=== PATIENT | male | born 1950 | race Caucasian/White ===

== ENCOUNTER 2020-06-20 17:41 | Inpatient (IN) | payer MEDICARE, OTHER ==
[~2020-06-20] VITALS: Ht 175.3 cm; Wt 52.2 kg
[2020-06-20] MEDS ORDERED: IPRATROPIUM NEB FS 0.5 MG/2.5 ML AMPUL.NEB ONE (17:54)
[2020-06-20] MEDS ORDERED: ALBUTEROL FS 2.5 MG/3 ML VIAL.NEB ONE (17:54)
[2020-06-20] MEDS ORDERED: IPRATROPIUM NEB FS 0.5 MG/2.5 ML AMPUL.NEB NEB ONE (18:00)
[2020-06-20] MEDS ORDERED: ALBUTEROL FS 2.5 MG/3 ML VIAL.NEB CONTNEB ONE (18:00)
[2020-06-20 18:07] LABS: BASOPHILS # (AUTO) 0.1 /CMM (0.0-0.2); BASOPHILS % (AUTO) 0.7 % (0.0-2.0); EOSINOPHILS % (AUTO) 2.4 % (0.0-6.0); HEMATOCRIT 57 % (39-51); HEMOGLOBIN 17.9 g/dL (13.5-17.5); LYMPHOCYTES # (AUTO) 0.8 /CMM (0.8-4.8); LYMPHOCYTES % (AUTO) 7.2 % (20.0-44.0); MEAN CORPUSCULAR HGB CONC 31 g/dl (31.0-36.0); MEAN CORPUSCULAR VOLUME 98 fL (80-96); MONOCYTES # (AUTO) 1.3 /CMM (0.1-1.30); MONOCYTES % (AUTO) 11.9 % (2.0-12.0); NEUTROPHILS # (AUTO) 8.6 /CMM (1.8-8.9); NEUTROPHILS % (AUTO) 77.8 % (43.0-81.0); PLATELET COUNT (AUTO) 276 /CMM (150-450); RED BLOOD CELL COUNT(AUTO) 5.82 MIL/uL (4.5-6.0); WHITE BLOOD COUNT (AUTO) 11.1 K/uL (4.3-11.0)
[2020-06-20] MEDS ORDERED: FINA5TAB11 GT (18:10)
[2020-06-20] MEDS ORDERED: CLON0.1T GT (18:10)
[2020-06-20] MEDS ORDERED: CARV12.5 GT (18:10)
[2020-06-20] MEDS ORDERED: MAGN400O6 GT (18:10)
[2020-06-20] MEDS ORDERED: LACT-96 GT (18:10)
[2020-06-20] MEDS ORDERED: MIRT-121 GT (18:10)
[2020-06-20] MEDS ORDERED: FAMO20TA8 GT (18:10)
[2020-06-20] MEDS ORDERED: MULT-439 GT (18:10)
[2020-06-20] MEDS ORDERED: HYDR-4077 GT (18:10)
[2020-06-20] MEDS ORDERED: CRAN3875 GT (18:10)
[2020-06-20] MEDS ORDERED: BISA10SU11 RC (18:10)
[2020-06-20] MEDS ORDERED: NA P133E RC (18:10)
[2020-06-20] MEDS ORDERED: DOCU-141 GT (18:10)
[2020-06-20] MEDS ORDERED: ACET325T53 GT (18:10)
[2020-06-20] MEDS ORDERED: BETH50TA2 GT (18:10)
[2020-06-20] MEDS ORDERED: AMLO10TA4 GT (18:10)
[2020-06-20] MEDS ORDERED: TERA10CA4 GT (18:10)
[2020-06-20 18:12] LABS: ABG OXYGEN SATURATION 93.8 % (92.0-98.5); ABG PCO2 40.5 mmHg (35.0-45.0); ABG PH 7.357 (7.350-7.450); ABG PO2 73.3 mmHg (75.0-100.0); AaDO2 165.3 mmHg; COHb 0.5 % (0.5-1.5); MetHb 0.5 % (0.0-1.5); O2Hb 92.9 % (94.0-97.0); SITE, ABG Right Radial; VENT MODE, BG N/C 40%
--- NOTE | 2020-06-20 18:15 | NUR ---
BIB FROM SNF TO ER BED 5. AWAKE AND ALERT BUT NON VERBAL ANSWER BY NODING. SOB BREATHING RAPID W/ RETRACTION. BROUGHT IN FOR LOW O2 SAT AND LOW HR. UPON ASSESSING, PT WAS NOTED WITH O2 SAT OF 86% ON RA COMING FROM NON REBREATHER BY EMS. PT'S HR NOTED IN THE 40S. SKIN IS MOTTLED, COLD AND CLAMMY. PT PLACED ON O2 VIA NC @ 5 LPM SATTING @ 99%. WAS AT THE BEDSIDE FOR EVAL. ORDERS RECEIVED, NOTED AND CARRIED OUT. IV IV ALREADY PRESENT ON RFA 22G BY EMS. NEW IV LINE ESTABLISHED ON LAC 20G, BLOOD DRAWN AND GIVEN TO PHLEB AT BEDSIDE. PT IN ON MONITOR
[2020-06-20] MEDS ORDERED: IV NS 0.9% 1,000 ML BAG IV ONE (18:30)
[2020-06-20] MEDS ORDERED: LEVOFLOXACIN 750 MG /D5W 150ML 150 ML IV ONE ×2 (18:30→18:39)
[2020-06-20] MEDS ORDERED: methylPREDNISolone SOD SUCC 125 MG/2ML VIAL IV ONE (18:30)
[2020-06-20] MEDS ORDERED: IV NS 0.9% 500 ML BAG IV ONE (18:30)
--- NOTE | 2020-06-20 18:31 | NUR ---
GOT BED 114-1 AFTER CHANGE OF SHIFT
[2020-06-20] MEDS ORDERED: methylPREDNISolone SOD SUCC 125 MG/2ML VIAL ONE (18:39)
[2020-06-20 18:43] LABS: ALANINE AMINOTRANSFERASE 27 U/L (12-78); ALBUMIN 3.7 g/dL (3.4-5.0); ALKALINE PHOSPHATASE 155 U/L (46-116); ASPARTATE AMINOTRANSFERASE 21 U/L (15-37); B-TYPE NATRIURETIC PEPTIDE 549 PG/ML (0-125); BILIRUBIN,DIRECT 0.1 mg/dL (0.0-0.2); BILIRUBIN,TOTAL 0.3 mg/dL (0.2-1.0); CARBON DIOXIDE 28 mmol/L (21-32); CREATININE 3.6 mg/dL (0.6-1.3); GLUCOSE 133 mg/dL (74-106); POTASSIUM 3.7 mmol/L (3.5-5.1); TOTAL PROTEIN, SERUM 9.5 g/dL (6.4-8.2)
[2020-06-20 18:45] LABS: CHLORIDE 126 mmol/L (98-107); SODIUM SERUM 167 mmol/L (136-145); UREA NITROGEN, BLOOD 95 mg/dL (7-18)
--- NOTE | 2020-06-20 18:48 | NUR ---
Dr Mansfield and primary nurse Hai are made aware of critical lab results reported by the lab.
--- NOTE | 2020-06-20 19:27 | NUR ---
cath attempted to collect urine. no out noted. made aware. pt being hydrated
--- NOTE | 2020-06-20 20:19 | NUR ---
REPORT GIVEN TO ОЛЬГА PERRY FOR CARLOS
--- NOTE | 2020-06-20 20:20 | NUR ---
RN NOTES RECEIVED ER ADMISSION REPORT FROM ОЛЬГА VERA. ALL PERTINENT ADMISSION INFO REGARDING PT NOTED. WILL WAIT FOR PT TO BE TRANSFERRED TO UNIT AND ADDRESS NEEDS ACCORDINGLY. COAT FINISHER MADE AWARE.
[2020-06-20 21:05] VITALS: BP 154/84
--- NOTE | 2020-06-20 21:05 | NUR ---
RN NOTES RECEIVED PT FROM ER VIA G[facility] ACCOMPANIED BY 2 ER STAFFS AND TRANSFERRED TO BED VIA 2 PERSON ASSIST. PT IS ALERT AND ORIENTED X1; NON VERBAL. PT ON 3L OF O2 VIA NC WITH RESPIRATIONS EVEN AND UNLABORED. COMPREHENSIVE PHYSICAL ASSESSMENT AND PATIENT CARE DONE. CALL LIGHT WITHIN REACH, SAFETY MEASURES AND ISOLATION PRECAUTION IN PLACE, WILL CONTINUE MONITOR AND ASSESS THROUGHOUT THE SHIFT. WILL CARRY OUT MD ORDERS ACCORDINGLY. POWER LINE INSTALLER AND REPAIRER MADE AWARE.
--- NOTE | 2020-06-20 21:07 | NUR ---
Millie lopez in [facility] - 06/20/20 at 2113 by TOYA pt transported to [facility] with emt and rn at bedside w/ acls protocol. nad during transport. pt ambulated from [facility] to bed w/o assist.
--- NOTE | 2020-06-20 21:07 | NUR ---
pt transported to unit on gurney with emt and rn at bedside w/ acls protocol. nad noted during transport
--- NOTE | 2020-06-20 21:15 | NUR ---
RN NOTES EMAR MEDICATION DUE FOR REASSESSMENT NOT DONE; MEDICATION WERE ALL GIVEN FROM ER ( LEVAQUIIN/D5W 750MG PREMIX 150ML AND IV 0.9NS 1.5ML) PT WAS ADMITTED TO [facility] @4494. CATERPILLAR MECHANIC MADE AWARE.
--- NOTE | 2020-06-20 21:35 | NUR ---
RN NOTES CRITICAL LAB ENDORSED TO MD, LACTIC ACID @2.4. SURGERY AIDE MADE AWARE. AWAITING FOR ANY ORDERS, WILL CARRY OUT ONCE ORDER HAS BEEN RECEIVED.
[2020-06-20] MEDS ORDERED: IV 1/2NS 1000 ML 1,000 ML IV PRN (23:00)
[2020-06-20] MEDS ORDERED: HYDROCODONE/APAP 5/325MG TABLET PO PRN (23:00)
[2020-06-20] MEDS ORDERED: MAG HYDROX/AL HYDROX/SIMETH 30 ML UDC PO PRN (23:00)
[2020-06-20] MEDS ORDERED: ACETAMINOPHEN 325 MG TABLET PO PRN (23:00)
[2020-06-20] MEDS ORDERED: Z GUARD REMEDY 2 OZ OINT TP PRN (23:00)
[2020-06-20] MEDS ORDERED: ENOXAPARIN SODIUM 40 MG/0.4 ML DISP.SYRIN SQ SCH (23:00)
[2020-06-20] MEDS ORDERED: MAGNESIUM HYDROXIDE 30 ML UDC PO PRN (23:00)
[2020-06-20] MEDS ORDERED: ONDANSETRON HCL/PF 4 MG/2 ML VIAL IVP PRN (23:00)
[2020-06-20] MEDS ORDERED: ZOLPIDEM TARTRATE 5 MG TABLET PO PRN (23:00)
--- NOTE | 2020-06-20 23:00 | NUR ---
RN NOTES NO CHANGE IN PATIENT CONDITION AT THIS TIME PATIENT VITALS STABLE, NO SIGNS OF ACUTE RESPIRATORY DISTRESS. PROJECT COORDINATOR MADE AWARE. WILL CONTINUE TO MONITOR AND REASSESS FOR ANY CHANGES THROUGHOUT THE SHIFT.
[2020-06-20] MEDS ORDERED: IPRATROPIUM NEB FS 0.5 MG/2.5 ML AMPUL.NEB NEB PRN (23:30)
[2020-06-20] MEDS ORDERED: DEXTROSE 50%-WATER 50 ML DISP.SYRIN IV PRN (23:30)
[2020-06-20] MEDS: ALBUTEROL FS 2.5 MG/0.5 ML VIAL.NEB NEB SCH (23:30)
[2020-06-21] VITALS: BP 129/90
[2020-06-21] MEDS: BLOOD SUGAR DIAGNOSTIC 1 EACH STRIP IN SCH ×4 (00:40→17:55)
[2020-06-21] MEDS: INSULIN REGULAR, HUMAN 100 UNIT/ML 3 ML VIAL SQ PRN ×4 (00:41→17:55)
--- NOTE | 2020-06-21 03:00 | NUR ---
RN NOTES PATIENT REMAINS IN NO ACUTE RESPIRATORY DISTRESS AT THIS TIME, NO CHANGES TO CONDITION/STATUS. AM PATIENT CARE DONE. BROWNELL OPERATOR WELL AWARE. WILL CONTINUE TO MONITOR AND REASSESS FOR ANY CHANGES THROUGHOUT THE SHIFT
[2020-06-21] MEDS: ALBUTEROL FS 2.5 MG/0.5 ML VIAL.NEB NEB SCH ×6 (03:26→23:30)
[2020-06-21 04:00] VITALS: BP 124/91
--- NOTE | 2020-06-21 06:53 | NUR ---
RN CLOSING NOTE: PATIENT REMAINS IN ROOM IN NO SIGNS OF RESPIRATORY DISTRESS, PATIENT STILL ON 2L OF O2 VIA NC ;TOLERATING WELL SATURATING @ >95% SP02. SAFETY MEASURES IMPLEMENTED, BED IN LOWEST POSITION, LOCKED, SIDE RAILS UP, CALL LIGHT WITHIN REACH. ALL NEEDS AND ORDERS ADDRESSED DURING THE SHIFT. IV ACCESS MAINTAINED INTACT, SECURED AND FLUSHING WELL. ALL DUE MEDS GIVEN ORDERED & SCHEDULED ; PATIENT TOLERATED WELL. PATIENT KEPT CLEAN AND COMFORTABLE WITHIN THE SHIFT. PATIENT ENDORSED TO INCOMING SHIFT RN WITH STABLE VITAL SIGN AND FOR CONTINUITY OF CARE.
--- NOTE | 2020-06-21 07:10 | NUR ---
RN OPENING NOTES RECEIVED PT RESTING IN BED, AO X1. NON VERBAL. ON ROOM AIR SATURATING @95%. NO SOB OR ANY SIGNS OF RESPIRATORY DISTRESS. SR ON TELE MONITOR. IV ACCESS AT RFA #22 AND LAC #20 BOTH INTACT AND PATENT. 1/2 NS @75ML/HR INFUSING WELL. SAFETY MEASURES IMPLEMENTED. CALL LIGHT WITHIN REACH. BED LOCKED AND IN LOWEST POSITION WITH SIDE RAILS UP X3. WILL CONTINUE TO MONITOR.
[2020-06-21 07:22] LABS: BASOPHILS % (AUTO) 0.2 % (0.0-2.0); HEMATOCRIT 50 % (39-51); HEMOGLOBIN 16.1 g/dL (13.5-17.5); LYMPHOCYTES # (AUTO) 0.5 /CMM (0.8-4.8); MEAN CORPUSCULAR HGB CONC 33 g/dl (31.0-36.0); MEAN CORPUSCULAR VOLUME 98 fL (80-96); MONOCYTES # (AUTO) 0.1 /CMM (0.1-1.30); MONOCYTES % (AUTO) 1.5 % (2.0-12.0); NEUTROPHILS # (AUTO) 8.1 /CMM (1.8-8.9); NEUTROPHILS % (AUTO) 92.3 % (43.0-81.0); PLATELET COUNT (AUTO) 218 /CMM (150-450); RED BLOOD CELL COUNT(AUTO) 5.07 MIL/uL (4.5-6.0); WHITE BLOOD COUNT (AUTO) 8.8 K/uL (4.3-11.0)
--- NOTE | 2020-06-21 07:24 | NUR ---
RT NOTE PT NEBULIZED ALBUTEROL TX HELD PER COVID POLICY, AWAITING PCR RESULTS. NO DISTRESS NOTED.
[2020-06-21 07:53] LABS: CALCIUM, SERUM 9.2 mg/dL (8.5-10.1); CREATININE 3.4 mg/dL (0.6-1.3); MAGNESIUM 3.2 mg/dL (1.8-2.4); PHOSPHORUS 3.8 mg/dL (2.5-4.9); POTASSIUM 4.2 mmol/L (3.5-5.1)
[2020-06-21 07:58] LABS: THYROID STIMULATING HORMONE 0.248 uIU/mL (0.358-3.74)
[2020-06-21 08:00] VITALS: BP 121/82
[2020-06-21] MEDS: PANTOPRAZOLE 40 MG TABLET.DR PO SCH (09:11)
[2020-06-21] MEDS: IPRATROPIUM NEB FS 0.5 MG/2.5 ML AMPUL.NEB NEB SCH ×3 (10:30→19:30)
[2020-06-21] MEDS ORDERED: IV D5W 1,000 ML IV ONE (10:30)
[2020-06-21] MEDS: HEPARIN SODIUM, PORCINE 5000 UNITS/1 ML VIAL SQ SCH ×2 (10:36→21:28)
[2020-06-21 12:00] VITALS: BP 145/84
--- NOTE | 2020-06-21 12:00 | NUR ---
RN NOTES BLOOD SUGAR OF 127, NO INSULIN COVERAGE.
[2020-06-21 16:00] VITALS: BP 147/88
[2020-06-21] MEDS: IV D5W 1,000 ML IV SCH ×2 (18:00→21:19)
--- NOTE | 2020-06-21 18:00 | NUR ---
RN NOTES BLOOD SUGAR OF 89, NO INSULIN COVERAGE.
--- NOTE | 2020-06-21 18:55 | NUR ---
RN CLOSING NOTES NO SIGNIFICANT CHANGES THROUGHOUT THE SHIFT. NO SOB. NOT IN DISTRESS. VS WNL. NO PAIN REPORTED. ALL DUE MEDS GIVEN. NEEDS ATTENDED. SAFETY MEASURES STILL IN PLACE. WILL ENDORSE TO NIGHT RN FOR CARLOS.
--- NOTE | 2020-06-21 19:35 | NUR ---
RN OPENING NOTES RECEIVED PT IN BED, A/O X1, NONVERBAL COOPERATIVE. PT AT THIS TIME IS ON 2L OF O2 VIA NASAL CANNULA. NO S/S OF RESP DISTRESS OR SOB. BREATHING IS UNLABORED AND EVEN AT THIS TIME. ON TELE MONITORING, PRESENTS WITH NSR WITH HEART RATE OF 64 AT THIS TIME. PT DENIES PAIN. SAFETY MEASURES IN PLACE. HOB ELEVATED. SIDE RAILS UP X3, BED LOCKED IN LOWEST POSITION. CALL LIGHT WITHIN REACH. WILL CONT TO MONITOR THROUGHOUT SHIFT.
[2020-06-21 20:00] VITALS: BP 147/88
[2020-06-22] VITALS: BP 126/79
[2020-06-22] MEDS: BLOOD SUGAR DIAGNOSTIC 1 EACH STRIP IN SCH ×4 (00:33→18:00)
--- NOTE | 2020-06-22 00:59 | NUR ---
RN NOTE BLOOD SUGAR IS 103, NO COVERAGE NEEDED. PT HAS D5W RUNNING AT THIS TIME.
[2020-06-22] MEDS: IPRATROPIUM NEB FS 0.5 MG/2.5 ML AMPUL.NEB NEB SCH ×4 (01:30→20:34)
--- NOTE | 2020-06-22 02:00 | NUR ---
RN NOTE PT POSITIVE PRELIMINARY BLOOD CULTURE RESULT FOR GRAM POSITIVE COCCI IN CLUSTERS.
[2020-06-22] MEDS: ALBUTEROL FS 2.5 MG/0.5 ML VIAL.NEB NEB SCH ×6 (03:30→23:25)
[2020-06-22 04:00] VITALS: BP 133/99
[2020-06-22] MEDS: INSULIN REGULAR, HUMAN 100 UNIT/ML 3 ML VIAL SQ PRN (05:56)
--- NOTE | 2020-06-22 06:07 | NUR ---
RN NOTE BLOOD SUGAR IS 105, PT ON IVF STILL D5W @100ML/HR
[2020-06-22 06:15] LABS: BASOPHILS % (AUTO) 0.2 % (0.0-2.0); EOSINOPHILS % (AUTO) 1.1 % (0.0-6.0); HEMATOCRIT 45 % (39-51); HEMOGLOBIN 14.7 g/dL (13.5-17.5); LYMPHOCYTES # (AUTO) 1.2 /CMM (0.8-4.8); LYMPHOCYTES % (AUTO) 13.5 % (20.0-44.0); MEAN CORPUSCULAR HGB CONC 33 g/dl (31.0-36.0); MEAN CORPUSCULAR VOLUME 97 fL (80-96); MONOCYTES # (AUTO) 0.7 /CMM (0.1-1.30); MONOCYTES % (AUTO) 8.5 % (2.0-12.0); NEUTROPHILS # (AUTO) 6.7 /CMM (1.8-8.9); NEUTROPHILS % (AUTO) 76.7 % (43.0-81.0); PLATELET COUNT (AUTO) 200 /CMM (150-450); RED BLOOD CELL COUNT(AUTO) 4.66 MIL/uL (4.5-6.0); WHITE BLOOD COUNT (AUTO) 8.8 K/uL (4.3-11.0)
--- NOTE | 2020-06-22 06:40 | NUR ---
RN CLOSING NOTES PT REMAINS IN BED. NO SIGNIFICANT CHANGES IN CONDITION. PT WAS COOPERATIVE. REMAINS NONVERBAL, ABLE TO ANSWER SIMPLE QUESTIONS. PT DENIES PAIN. PT REMAINS ON 2L OF OXYGEN VIA NASAL CANNULA NO S/S OF RESP DISTRESS OR SOB. BREATHING EVEN AND UNLABORED. PT OCCASIONALLY HAD UNPRODUCTIVE COUGH. ALL NEEDS ATTENDED. BED BATH DONE, LINENS CHANGED. ALL DUE MEDICATIONS GIVEN. NO DISTRESS NOTED. SAFETY MEASURES IN PLACE. HOB ELEVATED. SIDE RAILS X3, BED LOCKED IN LOWEST POSITION WITH BED ALARM ON. CALL LIGHT WITHIN REACH. WILL ENDORSE TO DAY SHIFT NURSE FOR CONTINUATION OF CARE.
[2020-06-22] MEDS: IV D5W 1,000 ML IV SCH ×2 (07:00→17:11)
[2020-06-22 07:57] LABS: CALCIUM, SERUM 8.4 mg/dL (8.5-10.1); CREATININE 3.1 mg/dL (0.6-1.3); MAGNESIUM 2.9 mg/dL (1.8-2.4); PHOSPHORUS 4.2 mg/dL (2.5-4.9); POTASSIUM 3.9 mmol/L (3.5-5.1)
[2020-06-22 08:00] VITALS: BP 140/90
--- NOTE | 2020-06-22 08:21 | NUR ---
RT Note Breathing TX held due to elevated HR.
[2020-06-22] MEDS: PANTOPRAZOLE 40 MG TABLET.DR PO SCH (10:05)
[2020-06-22] MEDS: HEPARIN SODIUM, PORCINE 5000 UNITS/1 ML VIAL SQ SCH ×2 (10:07→21:48)
[2020-06-22 12:00] VITALS: BP 168/103
[2020-06-22] MEDS: ENSURE ENLIVE 237 ML LIQUID (VANILLA) PO SCH ×2 (13:00→17:11)
[2020-06-22] MEDS ORDERED: VANCOMYCIN 1 GM in IV D5W 250 ML IV ONE (15:00)
[2020-06-22 16:00] VITALS: BP 156/78
--- NOTE | 2020-06-22 19:30 | NUR ---
KNITTER HELPER OPENING NOTE RECEIVED PATIENT IN BED. A/OX1, PATIENT IN NONVERBAL, DOES NOD HEAD TO ANSWER QUESTIONS. ON OXYGEN 2L.MIN VIA NASAL CANNULA. RESPIRATIONS ARE EVEN AND UNLABORED. NO S/S SOB NOTED. NO C/O PAIN AT THIS TIME,. EXTERNAL TELE MONITOR READS SINUS RHYTHM WITH PAC HR 70. IN NO APPARENT DISTRESS. IV ACCESS IN RAC#18 RUNNING D5W@100ML/HR. GTUBE IS PRESENT, BUT CLAMPED, PATIENT IS ABLE TO EAT BUT HAS POOR PO INTAKE, NO RESIDUAL NOTED, WILL FREE H20 FLUSH THROUGHOUT SHIFT. BED IS LOW AND LOCKED,HOB ELEVATED IN SEMI FOWLERS, SIDE RAILS UP X2, CALL LIGHT WITHIN REACH. BED ALARM ON. WILL CONTINUE TO MONITOR THOUGHOUT SHIFT.
[2020-06-22 20:00] VITALS: BP 143/78
[2020-06-23] VITALS (7 sets, daily range): BP systolic 134–163; BP diastolic 63–88
[2020-06-23] MEDS: BLOOD SUGAR DIAGNOSTIC 1 EACH STRIP IN SCH ×5 (00:06→23:37)
[2020-06-23] MEDS: IPRATROPIUM NEB FS 0.5 MG/2.5 ML AMPUL.NEB NEB SCH ×4 (01:24→20:35)
[2020-06-23] MEDS: IV D5W 1,000 ML IV SCH ×3 (02:20→23:28)
--- NOTE | 2020-06-23 02:21 | NUR ---
telephone operator receptionist note informed studio operations engineer in charge Dr. Acevedo that patient is getting out of bed, removing IV access and tele box. telephone order bilateral soft wrist restraint. order read back noted and carried out.
[2020-06-23] MEDS: ALBUTEROL FS 2.5 MG/0.5 ML VIAL.NEB NEB SCH ×5 (03:35→20:35)
[2020-06-23 06:36] LABS: CALCIUM, SERUM 8.6 mg/dL (8.5-10.1); CREATININE 2.6 mg/dL (0.6-1.3); POTASSIUM 3.4 mmol/L (3.5-5.1)
--- NOTE | 2020-06-23 06:56 | NUR ---
BODY ROLLING MACHINE TENDER CLOSING NOTE PATIENT IN BED. A/OX1,NONVERBAL. REMAINS ON OXYGEN 23L/MIN VIA NASAL CANNULA. NO RESP DISTRESS. NO C/O PAIN THROUGHOUT SHIFT. TELE MONITOR READS SINUS RHYTHM. NO DISTRESS. IV ACCESS IN LFA#22 RUNNING D5W@100ML/HR. GTUBE IS CLAMPED, FREE WATER FLUSH GIVEN. BED REMAINS LOW AND LOCKED,HOB ELEVATED IN SEMI FOWLERS, SIDE RAILS UP X2, CALL LIGHT WITHIN REACH. BED ALARM ON. WILL ENDORSE TO ONCOMING SHIFT.
--- NOTE | 2020-06-23 07:30 | NUR ---
RN OPENING NOTES PATIENT PRESENT IN BED, AWAKE, NON VERBAL, OPENS EYES TO HIS NAME, NSR ON TELE-MONITOR, WITH HR OF 70 BPM, BILATERAL SOFT RESTRAIN IN PLACE, SKIN CHECKED, REORIENTATION PROVIDED, ASSESSMENT DONE, IV LINE ON L FA #[address], INTACT AND PATENT, SAFETY MEASURES IN PLACE, BED LOCKED, LOWEST POSITION, BED ALARM ON, WILL CONT FREQUENT MONITORING
[2020-06-23] MEDS: HEPARIN SODIUM, PORCINE 5000 UNITS/1 ML VIAL SQ SCH ×2 (08:57→20:36)
[2020-06-23] MEDS: ENSURE ENLIVE 237 ML LIQUID (VANILLA) PO SCH ×3 (08:58→17:03)
[2020-06-23] MEDS: PANTOPRAZOLE 40 MG TABLET.DR PO SCH (09:38)
--- NOTE | 2020-06-23 17:47 | NUR ---
Acute check 71, provided with food, orange juice and Ensure
--- NOTE | 2020-06-23 18:31 | NUR ---
RN CLOSING NOTES PATIENT REMAINS IN BED, NOT FOLLOWING INSTRUCTIONS, ATTEMPTED TO REMOVED IV LINE ND GET OUT FROM THE BED, DURING REPOSITIONING, AND RESTRAINS CHECKING, PROVIDED WITH FOOD, FLUIDS, FREQUENT CHECKS, CLEANED, REPOSITIONED, WILL ENDORSE TO PM SHIFT RN FOR CARLOS
--- NOTE | 2020-06-23 19:10 | NUR ---
RECEIVED PATIENT IN BED. A/OX1, PATIENT IN NONVERBAL, DOES NOD HEAD TO ANSWER QUESTIONS. ON OXYGEN 2L.MIN VIA NASAL CANNULA. RESPIRATIONS ARE EVEN AND UNLABORED. NO S/S SOB NOTED. NO C/O PAIN AT THIS TIME,. EXTERNAL TELE MONITOR READS SINUS RHYTHM WITH PAC HR 70. IN NO APPARENT DISTRESS. IV ACCESS IN lfa #22 RUNNING D5W@100ML/HR. GTUBE IS PRESENT, BUT CLAMPED, PATIENT IS ABLE TO EAT BUT HAS POOR PO INTAKE, NO RESIDUAL NOTED, WILL FREE H20 FLUSH THROUGHOUT SHIFT.HAVE BILATERAL WRIST RESTRAINS CIRCULALTION WILL BE CHECKED REGULARLY BED IS LOW AND LOCKED,HOB ELEVATED IN SEMI FOWLERS, SIDE RAILS UP X2, CALL LIGHT WITHIN REACH. BED ALARM ON. WILL CONTINUE TO MONITOR .
[2020-06-23] MEDS: MUPIROCIN OINT 2% 22 GM TUBE NS SCH (20:38)
[2020-06-23] MEDS: INSULIN REGULAR, HUMAN 100 UNIT/ML 3 ML VIAL SQ PRN (23:37)
[2020-06-24] MEDS: ALBUTEROL FS 2.5 MG/0.5 ML VIAL.NEB NEB SCH ×7 (00:20→22:39)
--- NOTE | 2020-06-24 02:15 | NUR ---
PT STILL NOT SLEEPING DESPITE THE FREQUENT REMINDER FOR HIM TO SLEEP, INFORMED YOBANY BAUTISTA RAIL CAR MAINTENANCE MECHANIC ABOUT THE SITUATION SHE MADE AND ORDER FOR AMBIEN 10MG QHS PRN NOTED AND CARRIED OUT
[2020-06-24] MEDS: ZOLPIDEM TARTRATE 10 MG TABLET PO PRN ×2 (02:36→21:59)
[2020-06-24] MEDS ORDERED: VANCOMYCIN 1 GM in IV D5W 250ml IV SCH (03:00)
[2020-06-24] MEDS: IPRATROPIUM NEB FS 0.5 MG/2.5 ML AMPUL.NEB NEB SCH ×4 (03:13→19:33)
[2020-06-24 04:58] VITALS: BP 154/90
[2020-06-24] MEDS: BLOOD SUGAR DIAGNOSTIC 1 EACH STRIP IN SCH ×3 (05:23→17:12)
[2020-06-24] MEDS: INSULIN REGULAR, HUMAN 100 UNIT/ML 3 ML VIAL SQ PRN (05:24)
[2020-06-24 06:08] LABS: BASOPHILS % (AUTO) 0.4 % (0.0-2.0); EOSINOPHILS % (AUTO) 6.2 % (0.0-6.0); HEMATOCRIT 42 % (39-51); LYMPHOCYTES # (AUTO) 0.8 /CMM (0.8-4.8); LYMPHOCYTES % (AUTO) 16.1 % (20.0-44.0); MEAN CORPUSCULAR HGB CONC 33 g/dl (31.0-36.0); MEAN CORPUSCULAR VOLUME 94 fL (80-96); MONOCYTES # (AUTO) 0.6 /CMM (0.1-1.30); MONOCYTES % (AUTO) 11.4 % (2.0-12.0); NEUTROPHILS # (AUTO) 3.2 /CMM (1.8-8.9); NEUTROPHILS % (AUTO) 65.9 % (43.0-81.0); PLATELET COUNT (AUTO) 160 /CMM (150-450); RED BLOOD CELL COUNT(AUTO) 4.47 MIL/uL (4.5-6.0); WHITE BLOOD COUNT (AUTO) 4.9 K/uL (4.3-11.0)
[2020-06-24 06:45] VITALS: BP 135/93
--- NOTE | 2020-06-24 06:45 | NUR ---
MS RN OPENING/ CLOSING NOTE PATIENT WAS TRANSFERRED FROM [facility] 114 -2 TO ROOM 328-2. RECEIVED PATIENT VIA BED. PATIENT IS NONVERBAL, NODS HEAD WHEN ASKED QUESTIONS. ON OXYGEN 3L/MIN VIA NASAL CANNULA. RESPIRATIONS ARE EVEN AND MOMO. NO S/S SOB NOTED. NO C/O PAIN AT THIS TIME. IN NO APPARENT DISTRES. I ACCESS IN RFA#22 RUNNING D5W@100ML/HR. GTUBE PRESENT, CLAMPED. NO FEEDING RUNNING. BED IS LOW AND LOCKED, HOB ELEVATED IN SEMI FOWLERS, SIDE RAILS UP X2, CALL LIGHT WITHIN REACH. WILL ENDORSE TO ONCOMING SHIFT.
--- NOTE | 2020-06-24 06:51 | NUR ---
REPORT GIVEN TO MS CHONG RN OF 3W, TRANSFER PT TO ROOM 328-2 VIA HOSPITAL BED, STILL ON O2 3L SPO2 96% BREATHING EVEN AND UNLABORED, NO SIGN OF RESPIRATORY DISTRESS, PT IS AWAKE, STILL A/O X1 NON VERBAL CONFUSED, WITH BILATERAL WRIST RESTRAINS CIRCULATION WAS CHECKED REGULARLY, ENDORSED TO 3W RN FOR CARLOS
[2020-06-24 06:52] LABS: CALCIUM, SERUM 8.1 mg/dL (8.5-10.1); CREATININE 2.1 mg/dL (0.6-1.3); MAGNESIUM 1.9 mg/dL (1.8-2.4); PHOSPHORUS 3.2 mg/dL (2.5-4.9); POTASSIUM 3.6 mmol/L (3.5-5.1)
[2020-06-24 08:00] VITALS: BP 129/79
[2020-06-24] MEDS: PANTOPRAZOLE 40 MG TABLET.DR PO SCH (08:52)
[2020-06-24] MEDS: MUPIROCIN OINT 2% 22 GM TUBE NS SCH ×2 (08:52→22:04)
[2020-06-24] MEDS: ENSURE ENLIVE 237 ML LIQUID (VANILLA) PO SCH ×3 (08:53→16:34)
[2020-06-24] MEDS: IV D5W 1,000 ML IV SCH ×2 (08:53→18:14)
[2020-06-24] MEDS: HEPARIN SODIUM, PORCINE 5000 UNITS/1 ML VIAL SQ SCH ×2 (08:55→21:52)
[2020-06-24 16:00] VITALS: BP 135/97
--- NOTE | 2020-06-24 18:13 | NUR ---
END OF SHIFT SUMMARY PATIENT IN BED. A/O X2-3. ON ROOM AIR, TOLERATING WELL. NO SOB NOTED. NO S/S OF RESPIRATORY DISTRESS. IV ACCESS ON L FA #22 G, INTACT AND PATENT, D5W CURRENTLY RUNNING AT 100 ML/HR. BOTH WRIST ON SOFT RESTRAINT, ASSESSED PER PROTOCOL.ROUTINE MEDS WERE GIVEN ORDERED. SAFETY MEASURES MAINTAINED. BED IN LOWEST POSITION, BRAKES LOCKED. SIDE RAILS UP X2. CALL LIGHT WITHIN REACH. WILL ENDORSE CONTINUITY OF CARE TO ONCOMING SHIFT.
--- NOTE | 2020-06-24 19:00 | NUR ---
RN: CONTINUITY OF CARE Patient in bed awake, appears restless, attempting to get out from bed. Patient is confused, bilateral wrist restraints released and reapplied, no skin injury noted. On Oxygen support 2L via NC. Abdomen presence of cynthia Rachel. Fall precaution maintained. Addendum: 06/25/20 at 0036 by YOCASTA DONALDSON RN CLARIFICATION NOTES ABOVE: ОЛЬГА Medley Error documentation placed under ОЛЬГА Echavarria
[2020-06-24 20:00] VITALS: BP 158/98
--- NOTE | 2020-06-24 21:44 | NUR ---
CLARIFICATION NOTES ABOVE: ОЛЬГА Medley Error documentation placed under ОЛЬГА Echavarria Addendum: 06/25/20 at 0036 by YOCASTA DONALDSON RN DISREGARD NOTES ABOVE
--- NOTE | 2020-06-24 21:57 | NUR ---
ANTICOAGULANT H/H 14.0/42 Plt 160 No bleeding. Co-signed with Josephine Miguel RN
[2020-06-25] MEDS: BLOOD SUGAR DIAGNOSTIC 1 EACH STRIP IN SCH ×3 (00:13→11:39)
[2020-06-25] MEDS: IPRATROPIUM NEB FS 0.5 MG/2.5 ML AMPUL.NEB NEB SCH ×3 (02:02→13:41)
[2020-06-25] MEDS: ALBUTEROL FS 2.5 MG/0.5 ML VIAL.NEB NEB SCH ×3 (02:31→11:24)
[2020-06-25] MEDS ORDERED: VANCOMYCIN 1 GM in IV D5W 250ml IV SCH (06:00)
[2020-06-25] MEDS: INSULIN REGULAR, HUMAN 100 UNIT/ML 3 ML VIAL SQ PRN (06:08)
--- NOTE | 2020-06-25 06:14 | NUR ---
END OF SHIFT REPORT On Oxygen support 2L Via NC. IVF infusing, on IV Vancomycin. Afebrile. Patient remains confused, attempting to get out from bed, and removing IV peripheral line when restraints remove for assessment. Fall precaution maintained. Continue with Napoleon soft wrist restraints. Turned and repositioned. Will endorse to oncoming RN.
[2020-06-25 07:00] LABS: CALCIUM, SERUM 8.7 mg/dL (8.5-10.1); CREATININE 2.1 mg/dL (0.6-1.3); POTASSIUM 3.6 mmol/L (3.5-5.1)
--- NOTE | 2020-06-25 08:18 | NUR ---
RN-NOTES RECEIVED PATIENT AWAKE,ALERT WITH CONFUSION,ON O2 @ 2L VIA NC. IVF INFUSING ON LEFT HAND. NO ACUTE DISTRESS NOTED.PATIENT ON KEITH SOFT WRIST RESTRAINS DUE TO PATIENT KEEP REMOVING HIS PERIPHERAL IV LINE AND GETTING OUT OF BED UNASSISTED. BOTH HANDS WRISTWAS REASSESS FOR CIRCULATIONS. WILL CONT. MONITORING FOR SAFETY.
[2020-06-25] MEDS: ENSURE ENLIVE 237 ML LIQUID (VANILLA) PO SCH ×2 (08:35→12:57)
[2020-06-25] MEDS: PANTOPRAZOLE 40 MG TABLET.DR PO SCH (08:47)
[2020-06-25] MEDS: HEPARIN SODIUM, PORCINE 5000 UNITS/1 ML VIAL SQ SCH (08:48)
[2020-06-25] MEDS: MUPIROCIN OINT 2% 22 GM TUBE NS SCH (08:56)
--- NOTE | 2020-06-25 14:25 | NUR ---
RN-DISCHARGE NOTES. DR. REID HAD DISCHARGE ORDER.PATIENT WAS DISCHARGE TO [facility] TODAY. PATIENT LEFT THE UNIT A/O X2 QUIET,NO ACUTE DISTRESS NOTED. REPORT [facility] G[facility] TO [facility]. PATIENT WAS PICK BY AMBULANCE VIA GURNEY WITH THREE STAFF ASSIST.OFFERED PATIENT FLU VACCINE AND PNA VACCINE PRIOR TO DISCHARGE BUT PATIENT DID NOT RESPOND .
== END 2020-06-25 14:35 | DRG 189 ==
LOC: ER 17:50 → TELE1 20:47 → MEDSG1 06-23 08:06 → MED 06-24 06:47
PROVIDERS: ADMIT Student in an Organized Health Care Education/Training Program; ATTEND Internal Medicine
DX: J96.01 Acute respiratory failure with hypoxia (principal); G92 Toxic encephalopathy; N17.0 Acute kidney failure with tubular necrosis; E87.0 Hyperosmolality and hypernatremia; J44.1 Chronic obstructive pulmonary disease with (acute) exacerbation; E87.2 Acidosis; N40.0 Benign prostatic hyperplasia without lower urinary tract symptoms; Z86.73 Personal history of transient ischemic attack (TIA), and cerebral infarction without residual deficits; E86.0 Dehydration; F03.90 Unspecified dementia, unspecified severity, without behavioral disturbance, psychotic disturbance, mood disturbance, and anxiety; E86.1 Hypovolemia; F32.9 Major depressive disorder, single episode, unspecified; F09 Unspecified mental disorder due to known physiological condition; F39 Unspecified mood [affective] disorder; E11.22 Type 2 diabetes mellitus with diabetic chronic kidney disease; Z20.822 Contact with and (suspected) exposure to COVID-19; I12.9 Hypertensive chronic kidney disease with stage 1 through stage 4 chronic kidney disease, or unspecified chronic kidney disease; N18.9 Chronic kidney disease, unspecified; Z79.4 Long term (current) use of insulin
CPT/HCPCS: 36415; 36600; 71045-TC; 76770-TC; 80048-TC; 80061-TC; 80076-TC; 80202-TC; 82962-TC; 83605-TC; 83735-TC; 83880; 84100-TC; 84443-TC; 84484-TC; 85025-TC; 85730-TC; 87040-TC; 87081-TC; 94799-TC; A6253; C9803; G0378; J1644; J1650; J1815; J1956; J2930; J3370; J3490; J7030; J7040; J7060; J7070; J7120; U0003